=== PATIENT | female | born 1985 | race Hispanic/Latino ===

== ENCOUNTER 2018-08-19 23:29 | Observation (INO) | payer OTHER ==
[~2018-08-19] VITALS: Ht 160 cm; Wt 112.5 kg
[2018-08-19] MEDS ORDERED: DiphenhydrAMINE HCL 50 MG/ML VIAL ONE (23:44)
[2018-08-19] MEDS ORDERED: SODIUM CHLORIDE 0.9% 1000ML 1,000 ML IV ONE (23:44)
[2018-08-19] MEDS ORDERED: METOCLOPRAMIDE 10 MG/2 ML VIAL ONE (23:45)
[2018-08-19 23:55] LABS: BASOPHILS % (AUTO) 0.4 % (0.0-5.0); EOSINOPHILS % (AUTO) 0.6 % (0.0-8.0); HEMATOCRIT 35.9 % (36-48); LYMPHOCYTES % (AUTO) 19.7 % (21.0-51.0); MEAN CORPUSCULAR HEMOGLOBIN 27.5 pg (27.0-33.0); MEAN CORPUSCULAR HGB CONC 32.4 g/dL (32.0-36.0); MEAN CORPUSCULAR VOLUME 84.6 fL (79-99); MONOCYTES % (AUTO) 4.4 % (3.0-13.0); NEUTROPHILS % (AUTO) 74.9 % (40.0-77.0); PLATELET COUNT (AUTO) 307 K/uL (130-400); RED BLOOD CELL COUNT(AUTO) 4.25 MIL/uL (4.00-5.50); RED CELL DISTRIBUTION WIDTH 14.6 % (11.0-15.5)
[2018-08-20 00:04] LABS: CREATININE 0.9 mg/dL (0.5-1.5); POTASSIUM 3.4 mmol/L (3.5-5.1)
[2018-08-20 00:09] LABS: ALBUMIN 3.5 g/dL (3.5-5.0); BILIRUBIN,TOTAL 0.3 mg/dL (0.2-1.0); TOTAL PROTEIN, SERUM 8.1 g/dL (6.0-8.3)
[2018-08-20 00:49] LABS: APPEARANCE,URINE Clear (CLEAR); BILIRUBIN,URINE Negative (NEGATIVE); COLOR,URINE Yellow (YELLOW); GLUCOSE, URINE (UA) Negative (NEGATIVE); KETONES,URINE Negative (NEGATIVE); LEUKOCYTE ESTERASE ,URINE Small (NEGATIVE); NITRATE,URINE Negative (NEGATIVE); OCCULT BLOOD,URINE Moderate (NEGATIVE); PROTEIN,URINE Negative (NEGATIVE)
[2018-08-20 01:01] LABS: AMPHET/METH SCREEN,URINE NEGATIVE (NEGATIVE); BARBITURATE SCREEN, URINE NEGATIVE (NEGATIVE); BENZODIAZEPINES SCREEN,URINE NEGATIVE (NEGATIVE); CANNABINOID SCREEN,URINE NEGATIVE (NEGATIVE); COCAINE SCREEN,URINE NEGATIVE (NEGATIVE); OPIATE SCREEN,URINE NEGATIVE (NEGATIVE); PHENCYCLIDINE SCREEN,URINE NEGATIVE (NEGATIVE)
[2018-08-20 01:15] LABS: BACTERIA,URINE None Seen /HPF (None Seen); CALCIUM OXALATE CRYSTALS,UR Rare /LPF (None Seen); RBC,URINE 0-1 /HPF (0-1); SQUAMOUS EPITHELIAL CELL,UR Few /HPF (0-2); WBC,URINE 0-1 /HPF (0-1)
[2018-08-20] MEDS ORDERED: ONDANSETRON HCL 4 MG/2 ML VIAL IV PRN (02:00)
[2018-08-20] MEDS ORDERED: ACETAMINOPHEN 325 MG TAB PO PRN (02:00)
[2018-08-20] MEDS ORDERED: HYDRALAZINE HCL 20 MG/ML VIAL IV PRN (02:00)
[2018-08-20] MEDS ORDERED: IOHEXOL-350 75 ML VIAL IV ONE (02:14)
[2018-08-20] MEDS ORDERED: LISINOPRIL 5 MG TABLET ONE (05:00)
[2018-08-20 08:36] LABS: BASOPHILS % (AUTO) 0.7 % (0.0-5.0); EOSINOPHILS % (AUTO) 0.9 % (0.0-8.0); HEMATOCRIT 32.6 % (36-48); LYMPHOCYTES % (AUTO) 26.8 % (21.0-51.0); MEAN CORPUSCULAR HEMOGLOBIN 27.3 pg (27.0-33.0); MEAN CORPUSCULAR HGB CONC 32.8 g/dL (32.0-36.0); MEAN CORPUSCULAR VOLUME 83.2 fL (79-99); MONOCYTES % (AUTO) 5.1 % (3.0-13.0); NEUTROPHILS % (AUTO) 66.5 % (40.0-77.0); PLATELET COUNT (AUTO) 270 K/uL (130-400); RED BLOOD CELL COUNT(AUTO) 3.91 MIL/uL (4.00-5.50); RED CELL DISTRIBUTION WIDTH 14.1 % (11.0-15.5); WHITE BLOOD COUNT (AUTO) 8.9 K/uL (4.8-10.8)
[2018-08-20 08:48] LABS: ALBUMIN 2.9 g/dL (3.5-5.0); BILIRUBIN,TOTAL 0.5 mg/dL (0.2-1.0); CREATININE 0.7 mg/dL (0.5-1.5); POTASSIUM 3.5 mmol/L (3.5-5.1)
[2018-08-20] MEDS ORDERED: ENOXAPARIN SODIUM 40 MG/0.4 ML SYRINGE SQ ONE (08:51)
[2018-08-20] MEDS ORDERED: FAMOTIDINE 20MG TAB 20 MG TAB ONE (08:51)
[2018-08-20] MEDS ORDERED: ASPIRIN 325 MG TABLET ONE (08:51)
[2018-08-20] MEDS: FAMOTIDINE 20MG TAB 20 MG TAB PO SCH ×2 (09:00→21:47)
[2018-08-20] MEDS: ENOXAPARIN SODIUM 40 MG/0.4 ML SYRINGE SQ SCH (09:00)
[2018-08-20] MEDS: ASPIRIN 325 MG TABLET PO SCH (09:00)
[2018-08-20] MEDS: LISINOPRIL 10 MG TABLET PO SCH (09:00)
[2018-08-20] MEDS ORDERED: GADODIAMIDE 5 MMOL/10 ML VIAL 5 MMOL/10 ML ML IV ONE (10:49)
--- NOTE | 2018-08-20 10:50 | NUR ---
PARISH Luevano met with pt and her mom Radha Belcher [phone]. Pt and her 4yro are staying with her Father in [place] since she recently from her . Pt works, is independent of ADLS, no DME or in homes care services. Pt goes to [facility] and uses [facility]. Denies dc needs, plan is home Addendum: 08/20/18 at 1052 by JOSÉ DHILLON Amended: Links added.
[2018-08-20] MEDS ORDERED: LEVETIRACETAM 500 MG TABLET PO ONE (10:55)
[2018-08-20 15:30] VITALS: BP 139/79
[2018-08-20 19:39] VITALS: BP 125/73
[2018-08-20] MEDS: LEVETIRACETAM 500 MG TABLET PO SCH (21:47)
[2018-08-20] MEDS: ACETAMINOPHEN 325 MG TAB PO PRN (21:54)
[2018-08-20 23:20] VITALS: BP 114/70
[2018-08-21 03:58] VITALS: BP 111/55
[2018-08-21 08:00] VITALS: BP 139/75
[2018-08-21] MEDS: LISINOPRIL 10 MG TABLET PO SCH (08:54)
[2018-08-21] MEDS: FAMOTIDINE 20MG TAB 20 MG TAB PO SCH ×2 (08:54→20:01)
[2018-08-21] MEDS: LEVETIRACETAM 500 MG TABLET PO SCH ×2 (08:54→20:01)
[2018-08-21] MEDS: ASPIRIN 325 MG TABLET PO SCH (08:54)
[2018-08-21] MEDS: ENOXAPARIN SODIUM 40 MG/0.4 ML SYRINGE SQ SCH (08:55)
[2018-08-21 11:44] VITALS: BP 130/76
[2018-08-21 16:00] VITALS: BP 138/95
[2018-08-21 19:18] VITALS: BP 137/75
[2018-08-21] MEDS: POTASSIUM CHLORIDE 20 MEQ ERTAB PO SCH (20:01)
[2018-08-21] MEDS: ACETAMINOPHEN 325 MG TAB PO PRN (20:01)
[2018-08-21 23:31] VITALS: BP 132/87
[2018-08-22 03:27] VITALS: BP 119/66
[2018-08-22 04:14] LABS: HEMATOCRIT 33.4 % (36-48); MEAN CORPUSCULAR HEMOGLOBIN 28.1 pg (27.0-33.0); MEAN CORPUSCULAR HGB CONC 33.2 g/dL (32.0-36.0); MEAN CORPUSCULAR VOLUME 84.6 fL (79-99); PLATELET COUNT (AUTO) 303 K/uL (130-400); RED BLOOD CELL COUNT(AUTO) 3.95 MIL/uL (4.00-5.50); RED CELL DISTRIBUTION WIDTH 14.3 % (11.0-15.5); WHITE BLOOD COUNT (AUTO) 8.5 K/uL (4.8-10.8)
[2018-08-22 04:21] LABS: CREATININE 0.8 mg/dL (0.5-1.5)
[2018-08-22 08:00] VITALS: BP 124/73
[2018-08-22] MEDS: ENOXAPARIN SODIUM 40 MG/0.4 ML SYRINGE SQ SCH ×2 (09:00→09:36)
[2018-08-22] MEDS: ASPIRIN 325 MG TABLET PO SCH (09:33)
[2018-08-22] MEDS: LISINOPRIL 10 MG TABLET PO SCH (09:34)
[2018-08-22] MEDS: FAMOTIDINE 20MG TAB 20 MG TAB PO SCH (09:34)
[2018-08-22] MEDS: LEVETIRACETAM 500 MG TABLET PO SCH (09:34)
[2018-08-22] MEDS: POTASSIUM CHLORIDE 20 MEQ ERTAB PO SCH (09:34)
--- NOTE | 2018-08-22 09:38 | NUR ---
LOVENOX PLATELET COUNT OF 94. MD TO BE MADE AWARE. LOVENOX NOT GIVEN. AAOX3, NO NOTED SOB OR DISTRESS. PATIENT ALSO SCHEDULED FOR ASPIRIN 325MG PO
[2018-08-22 11:00] VITALS: BP 124/78
[2018-08-22] MEDS ORDERED: LISI10TA7 PO (14:00)
[2018-08-22] MEDS ORDERED: LEVE500T8 PO (14:00)
--- NOTE | 2018-08-22 16:05 | NUR ---
DISCHARGE DISCHARGE TEACHING DONE WITH PATIENT AND FAMILY USING TEACHBACK METHOD, VERBALIZED UNDERSTANDING. NO NOTED SOB OR DISTRESS. PT AWARE OF NEED TO SET UP APPOINTMENT WITH DR. MURRY IN 6-8 WEEKS. PT AWARE OF APPOINTMENT WITH DR. AVILA, VERBALIZED UNDERSTANDING. NEW MEDICATION ADMINISTRATION TEACHING DONE WITH PATIENT, VERBALIZED UNDERSTANDING. IV REMOVED, CATH TIP INTACT. PENDING TO BE TRANSFERRED OUT VIA PRIVATE VEHICLE.
== END 2018-08-22 16:26 | disposition home or self-care (01) ==
LOC: EDH 23:29 → INTOOBSV 08-20 01:45 → EDHIP 08-20 01:45 → 4BH 08-20 14:57
PROVIDERS: ADMIT Internal Medicine; ATTEND Internal Medicine
DX: I16.1 Hypertensive emergency (principal); I67.4 Hypertensive encephalopathy; G45.9 Transient cerebral ischemic attack, unspecified; E28.2 Polycystic ovarian syndrome; I10 Essential (primary) hypertension; R55 Syncope and collapse; E66.01 Morbid (severe) obesity due to excess calories; Z68.42 Body mass index [BMI] 45.0-49.9, adult; Z82.49 Family history of ischemic heart disease and other diseases of the circulatory system; Z91.81 History of falling; Z88.0 Allergy status to penicillin; Z88.2 Allergy status to sulfonamides; Z88.8 Allergy status to other drugs, medicaments and biological substances; Z79.899 Other long term (current) drug therapy
CPT/HCPCS: 36415 ×3; 70450; 70496; 70498; 70553; 80048; 80053 ×2; 80061; 80305; 81001; 81025; 85025 ×2; 85027; 93005; 93306; 95816; 96372; 99284; A9579; G0378 ×63; J1200; J1650 ×2; J2765; J7030; Q9967

== ENCOUNTER 2020-03-03 09:45 | Emergency (ER) | payer OTHER ==
[~2020-03-03 09:45] MED LIST: LEVE-43 PO; LISI10TA7 PO
[2020-03-03] MEDS ORDERED: ACETAMINOPHEN EXTRA STRENGTH 500 MG TABLET ONE (10:17)
[2020-03-03 10:32] LABS: CREATININE 0.9 mg/dL (0.5-1.5); POTASSIUM 3.9 mmol/L (3.5-5.1)
[2020-03-03 10:37] LABS: ALBUMIN 3.4 g/dL (3.5-5.0); BASOPHILS % (AUTO) 0.3 % (0.0-5.0); BILIRUBIN,TOTAL 0.4 mg/dL (0.2-1.0); EOSINOPHILS % (AUTO) 3.4 % (0.0-8.0); HEMATOCRIT 39.9 % (36-48); LYMPHOCYTES % (AUTO) 30.4 % (21.0-51.0); MEAN CORPUSCULAR HGB CONC 32.6 g/dL (32.0-36.0); MONOCYTES % (AUTO) 5.2 % (3.0-13.0); NEUTROPHILS % (AUTO) 60.1 % (40.0-77.0); NUCLEATED RED BLOOD CELLS 0.3 % (0.0-0.19); PLATELET COUNT (AUTO) 289 K/uL (130-400); RED BLOOD CELL COUNT(AUTO) 4.64 MIL/uL (4.00-5.50); RED CELL DISTRIBUTION WIDTH 13.3 % (11.0-15.5); WHITE BLOOD COUNT (AUTO) 6.7 K/uL (4.8-10.8)
[2020-03-03 10:41] LABS: INR 0.93 (0.85-1.15); PARTIAL THROMBOPLASTIN TIME 26.3 SEC (26.3-35.5); PROTHROMBIN TIME 10.1 SEC (9.6-11.6)
== END 2020-03-03 12:18 | disposition home or self-care (01) ==
LOC: EDH 09:45
DX: R55 Syncope and collapse (principal); Z90.710 Acquired absence of both cervix and uterus; Z90.49 Acquired absence of other specified parts of digestive tract; Z87.891 Personal history of nicotine dependence; Z88.0 Allergy status to penicillin; Z88.2 Allergy status to sulfonamides; Z88.1 Allergy status to other antibiotic agents; Z88.8 Allergy status to other drugs, medicaments and biological substances
CPT/HCPCS: 36415; 70450; 71045; 80053; 82550; 84484; 85025; 85610; 85730; 93005

== ENCOUNTER 2020-10-13 14:39 | Emergency (ER) | payer OTHER ==
[~2020-10-13 14:39] MED LIST changes: +LISI10TA24 PO; -LISI10TA7 PO
[2020-10-13 16:04] LABS: BASOPHILS % (AUTO) 0.3 % (0.0-5.0); EOSINOPHILS % (AUTO) 0.7 % (0.0-8.0); HEMATOCRIT 37.6 % (36-48); LYMPHOCYTES % (AUTO) 26.1 % (21.0-51.0); MEAN CORPUSCULAR HEMOGLOBIN 28.1 pg (27.0-33.0); MEAN CORPUSCULAR HGB CONC 31.1 g/dL (32.0-36.0); MEAN CORPUSCULAR VOLUME 90.4 fL (79-99); MONOCYTES % (AUTO) 5.1 % (3.0-13.0); NEUTROPHILS % (AUTO) 67.4 % (40.0-77.0); PLATELET COUNT (AUTO) 258 K/uL (130-400); RED BLOOD CELL COUNT(AUTO) 4.16 MIL/uL (4.00-5.50); RED CELL DISTRIBUTION WIDTH 13.2 % (11.0-15.5); WHITE BLOOD COUNT (AUTO) 7.4 K/uL (4.8-10.8)
[2020-10-13 16:20] LABS: CREATININE 0.9 mg/dL (0.5-1.5); POTASSIUM 3.9 mmol/L (3.5-5.1)
[2020-10-13 16:30] LABS: ALBUMIN 3.4 g/dL (3.5-5.0); BILIRUBIN,TOTAL 0.3 mg/dL (0.2-1.0); TOTAL PROTEIN, SERUM 7.4 g/dL (6.0-8.3)
[2020-10-13 16:43] LABS: INR > 7.00 (0.85-1.15); PARTIAL THROMBOPLASTIN TIME > 120.0 SEC (26.3-35.5); PROTHROMBIN TIME > 90.0 SEC (9.6-11.6)
[2020-10-13 16:47] LABS: APPEARANCE,URINE Clear (CLEAR); BILIRUBIN,URINE Negative (NEGATIVE); COLOR,URINE Yellow (YELLOW); GLUCOSE, URINE (UA) >=1000 mg/dL (NEGATIVE); KETONES,URINE Negative (NEGATIVE); LEUKOCYTE ESTERASE ,URINE Small (NEGATIVE); NITRATE,URINE Negative (NEGATIVE); OCCULT BLOOD,URINE Negative (NEGATIVE); PROTEIN,URINE Negative (NEGATIVE); UROBILINOGEN,URINE 0.2 mg/dL (0.2-1.0)
[2020-10-13 16:52] LABS: HCG,QUAL RESULT NEGATIVE (NEGATIVE)
[2020-10-13 16:56] LABS: RBC,URINE 0-1 /HPF (0-1)
[2020-10-13 16:57] LABS: BACTERIA,URINE Moderate /HPF (None Seen); SQUAMOUS EPITHELIAL CELL,UR Few /HPF (0-2)
== END 2020-10-13 19:02 | disposition home or self-care (01) ==
LOC: EDH 14:39
DX: G43.909 Migraine, unspecified, not intractable, without status migrainosus (principal); Z90.49 Acquired absence of other specified parts of digestive tract; Z90.710 Acquired absence of both cervix and uterus; Z87.891 Personal history of nicotine dependence; Z88.0 Allergy status to penicillin; Z88.2 Allergy status to sulfonamides; Z88.1 Allergy status to other antibiotic agents
CPT/HCPCS: 36415; 70450; 80053; 81001; 81025; 82550; 83605; 84484; 85025; 85610; 85730; 87088; 93005

== ENCOUNTER 2022-01-22 08:44 | Emergency (ER) | payer OTHER ==
[~2022-01-22] VITALS: Ht 157.5 cm; Wt 108.9 kg
[2022-01-22 09:09] LABS: BASOPHILS % (AUTO) 0.4 % (0.0-5.0); HEMATOCRIT 41.1 % (36-48); LYMPHOCYTES % (AUTO) 28.2 % (21.0-51.0); MEAN CORPUSCULAR HEMOGLOBIN 28.2 pg (27.0-33.0); MEAN CORPUSCULAR HGB CONC 33.1 g/dL (32.0-36.0); MEAN CORPUSCULAR VOLUME 85.1 fL (79-99); MONOCYTES % (AUTO) 5.1 % (3.0-13.0); NEUTROPHILS % (AUTO) 64.9 % (40.0-77.0); PLATELET COUNT (AUTO) 297 K/uL (130-400); RED BLOOD CELL COUNT(AUTO) 4.83 MIL/uL (4.00-5.50); WHITE BLOOD COUNT (AUTO) 7.7 K/uL (4.8-10.8)
[2022-01-22 09:10] LABS: CREATININE 0.9 mg/dL (0.5-1.5); POTASSIUM 3.6 mmol/L (3.5-5.1)
[2022-01-22 09:15] LABS: ALBUMIN 3.7 g/dL (3.5-5.0); TOTAL PROTEIN, SERUM 8.3 g/dL (6.0-8.3)
[2022-01-22] MEDS ORDERED: PANTOPRAZOLE 40 MG/VIAL IVP SCH (09:51)
[2022-01-22 10:08] LABS: APPEARANCE,URINE CLEAR (CLEAR); BILIRUBIN,URINE NEGATIVE (NEGATIVE); COLOR,URINE YELLOW (YELLOW); GLUCOSE, URINE (UA) >=1000 mg/dL (NEGATIVE); KETONES,URINE 5 mg/dL (NEGATIVE); LEUKOCYTE ESTERASE ,URINE NEGATIVE (NEGATIVE); NITRATE,URINE NEGATIVE (NEGATIVE); OCCULT BLOOD,URINE NEGATIVE (NEGATIVE); PROTEIN,URINE NEGATIVE (NEGATIVE); UROBILINOGEN,URINE 0.2 mg/dL (0.2-1.0)
[2022-01-22 10:09] VITALS: BP 126/84
[2022-01-22 10:15] LABS: AMPHET/METH SCREEN,URINE NEGATIVE (NEGATIVE); BENZODIAZEPINES SCREEN,URINE NEGATIVE (NEGATIVE); CANNABINOID SCREEN,URINE NEGATIVE (NEGATIVE); COCAINE SCREEN,URINE NEGATIVE (NEGATIVE); PHENCYCLIDINE SCREEN,URINE NEGATIVE (NEGATIVE)
[2022-01-22 10:16] LABS: BACTERIA,URINE Rare /HPF (None Seen); RBC,URINE 0-1 /HPF (0-1); SQUAMOUS EPITHELIAL CELL,UR Few /HPF (0-2); WBC,URINE 0-1 /HPF (0-1)
[2022-01-22 10:17] LABS: HCG,QUALITATIVE URINE NEGATIVE (NEGATIVE)
[2022-01-22] MEDS ORDERED: PANT40TA55 PO (11:49)
[2022-01-24 10:14] LABS: OPIATES SCREEN URINE Negative ng/mL (Cutoff=300)
== END 2022-01-22 11:54 | disposition home or self-care (01) ==
LOC: EDH 08:44
DX: K21.9 Gastro-esophageal reflux disease without esophagitis (principal); E11.9 Type 2 diabetes mellitus without complications; I10 Essential (primary) hypertension; Z88.0 Allergy status to penicillin; Z88.1 Allergy status to other antibiotic agents; Z88.2 Allergy status to sulfonamides; Z79.899 Other long term (current) drug therapy
CPT/HCPCS: 99285; 96374; 71045; 84484; 80053; 80305; 85025; 81025; 36415; 93005; 81001; C9113

== ENCOUNTER 2023-02-04 09:39 | Emergency (ER) | payer BC, OTHER ==
[~2023-02-04] VITALS: Ht 157.5 cm; Wt 102.1 kg
[~2023-02-04 09:39] MED LIST changes: +PANT40TA55 PO
[2023-02-04 10:19] LABS: BASOPHILS # (AUTO) 0.03 K/uL (0.00-0.20); BASOPHILS % (AUTO) 0.4 % (0.0-5.0); EOSINOPHILS # (AUTO) 0.02 K/uL (0.00-0.70); EOSINOPHILS % (AUTO) 0.2 % (0.0-8.0); HEMATOCRIT 40.1 % (36-48); IMMATURE GRANULOCYTE ABSOLUTE 0.02 K/uL (0-1); LYMPHOCYTES # (AUTO) 1.7 K/uL (1.0-4.8); LYMPHOCYTES % (AUTO) 20.8 % (21.0-51.0); MEAN CORPUSCULAR HEMOGLOBIN 28.9 pg (27.0-33.0); MEAN CORPUSCULAR HGB CONC 33.2 g/dL (32.0-36.0); MEAN CORPUSCULAR VOLUME 87.2 fL (79-99); MONOCYTES # (AUTO) 0.3 K/uL (0.1-1.0); MONOCYTES % (AUTO) 4.1 % (3.0-13.0); NEUTROPHILS # (AUTO) 6.1 K/uL (1.8-7.7); NEUTROPHILS % (AUTO) 74.3 % (40.0-77.0); PLATELET COUNT (AUTO) 289 K/uL (130-400); RED CELL DISTRIBUTION WIDTH 12.8 % (11.0-15.5); WHITE BLOOD COUNT (AUTO) 8.2 K/uL (4.8-10.8)
[2023-02-04 10:29] LABS: CREATININE 0.7 mg/dL (0.5-1.5); POTASSIUM 3.8 mmol/L (3.5-5.1)
[2023-02-04 10:34] LABS: ALBUMIN 3.2 g/dL (3.5-5.0); BILIRUBIN,TOTAL 0.3 mg/dL (0.2-1.0); TOTAL PROTEIN, SERUM 7.4 g/dL (6.0-8.3)
[2023-02-04 10:53] LABS: HCG,QUALITATIVE URINE NEGATIVE (NEGATIVE)
[2023-02-04 11:01] LABS: APPEARANCE,URINE CLEAR (CLEAR); BILIRUBIN,URINE NEGATIVE (NEGATIVE); COLOR,URINE LIGHT-YELLOW (YELLOW); GLUCOSE, URINE (UA) >=1000 mg/dL (NEGATIVE); KETONES,URINE 40 mg/dL (NEGATIVE); LEUKOCYTE ESTERASE ,URINE 75 Leu/uL (NEGATIVE); NITRATE,URINE NEGATIVE (NEGATIVE); OCCULT BLOOD,URINE NEGATIVE (NEGATIVE); PH,URINE 5.5 (5.0-8.0); PROTEIN,URINE NEGATIVE (NEGATIVE); UROBILINOGEN,URINE 0.2 mg/dL (0.2-1.0)
[2023-02-04 11:18] LABS: ADD UA MICROSCOPIC YES
[2023-02-04 11:21] LABS: BACTERIA,URINE Rare /HPF (None Seen); RBC,URINE 0-1 /HPF (0-1); SQUAMOUS EPITHELIAL CELL,UR 0-2 /HPF (0-2); WBC,URINE 0 /HPF (0-1); YEAST,URINE BUDDING None Seen /HPF (None Seen)
[2023-02-04 11:46] LABS: MAGNESIUM 1.6 mg/dL (1.80-2.40); THYROID STIMULATING HORMONE 1.12 uIU/mL (0.36-3.74)
[2023-02-04] MEDS ORDERED: MAGNESIUM 2GM PREMIX 50ML 50 ML IV SCH (12:30)
[2023-02-04] MEDS ORDERED: DiphenhydrAMINE HCL 50 MG/ML VIAL IV ONE (13:30)
[2023-02-04] MEDS ORDERED: METOCLOPRAMIDE 10 MG/2 ML VIAL IVP ONE (13:30)
[2023-02-04] MEDS ORDERED: 0.9%NACL 1000ML 1,000 ML IV ONE (13:30)
[2023-02-04] MEDS ORDERED: FAMOTIDINE 20MG VIAL IV ONE (13:30)
[2023-02-04] MEDS ORDERED: KETOROLAC 30MG VIAL (30MG/ML) IVP ONE (13:30)
[2023-02-04] MEDS ORDERED: MACR100 PO (15:48)
[2023-02-04] MEDS ORDERED: TOPI25TA42 PO (15:48)
[2023-02-04] MEDS ORDERED: INSULIN HUMULIN R 100 UNIT/ML 3ML SQ ONE (16:00)
[2023-02-04] MEDS ORDERED: NITROFURANTOIN MONOHYD/M-CRYST 100 MG CAPSULE PO ONE (16:00)
[2023-02-04 17:57] VITALS: BP 124/66; PULSE 67; RESP 16; O2SAT 97
== END 2023-02-04 18:00 | disposition home or self-care (01) ==
LOC: EDH 09:39
DX: G43.109 Migraine with aura, not intractable, without status migrainosus (principal); N39.0 Urinary tract infection, site not specified; E11.65 Type 2 diabetes mellitus with hyperglycemia; J45.909 Unspecified asthma, uncomplicated; Z88.0 Allergy status to penicillin; Z88.2 Allergy status to sulfonamides; Z88.8 Allergy status to other drugs, medicaments and biological substances
CPT/HCPCS: 99285; 96365; 96375; 96366; 84443; 83735; 80053; 85025; 87088; 82948; 81001; 81025; 36415; 96372; J1815; J3475; J1200; J3490; J7030; J1885; J2765

== ENCOUNTER → 2025-04-20 | Outpatient (CLI) | payer BC ==
[~2025-04-20] MED LIST changes: +INSU3INS10 SQ; -LEVE-43 PO; -LISI10TA24 PO; -PANT40TA55 PO
--- NOTE | 2025-04-21 00:47 | HMCIMG ---
EXAM: MR Left Lower Extremity Without IV Contrast, Knee CLINICAL HISTORY: M23.222 ??? Derangement of posterior horn of medial meniscus due to old tear or injury TECHNIQUE: Multisequence, multiplanar magnetic resonance images of the left knee obtained without intravenous contrast. Series Acquired: 4 ??? AX T2 ??? TR: 4843.0 5 ??? AX T1 ??? TR: 699.0 6 ??? AX 2D MERGE ??? TR: 863.0 7 ??? COR PD ??? TR: 2202.0 8 ??? COR PD FS ??? TR: 2672.0 9 ??? COR 2D MERGE ??? TR: 896.0 10 ??? SAG PD ??? TR: 2431.0 11 ??? SAG T2 ??? TR: 2650.0 CONTRAST: None COMPARISON: None provided FINDINGS: Ligaments: Anterior cruciate ligament intact. Posterior cruciate ligament intact. Medial and lateral collateral ligaments intact. Tendons: Quadriceps, patellar, popliteus, iliotibial band, and both gastrocnemius tendons intact. Bones: No acute fracture or marrow oedema. Bone marrow signal intensity within normal limits. Muscles: Normal girth and signal intensity. Fluid: Physiologic amount of joint fluid. No popliteal cyst. Cartilage: Articular cartilage over femorotibial and patellofemoral compartments shows mild surface irregularity, no focal defect. Menisci: Medial meniscus demonstrates intrameniscal degeneration involving the posterior horn and body with a horizontal linear signal extending to the inferior articular surface, consistent with a horizontal cleavage tear on a background of degeneration. Lateral meniscus shows a horizontal cleavage tear extending through the anterior horn, body, and posterior horn. No displaced meniscal fragment or parameniscal cyst. Retinacula: Medial and lateral patellar retinacula intact. IMPRESSION: * Horizontal cleavage tear of the posterior horn and body of the medial meniscus with associated degenerative changes. * Horizontal cleavage tear involving anterior horn, body, and posterior horn of the lateral meniscus. * No displaced meniscal fragment or parameniscal cyst. * Ligaments, tendons, and osseous structures intact. /[place]
== END | disposition home or self-care (01) ==
LOC: RAH 10:56
PROVIDERS: ATTEND Family Medicine
DX: S83.242A Other tear of medial meniscus, current injury, left knee, initial encounter (principal); S83.282A Other tear of lateral meniscus, current injury, left knee, initial encounter; M17.12 Unilateral primary osteoarthritis, left knee; X58.XXXA Exposure to other specified factors, initial encounter; Y93.89 Activity, other specified; Y92.89 Other specified places as the place of occurrence of the external cause; Y99.8 Other external cause status
CPT/HCPCS: 73721